=== PATIENT | female | born 1975 | race Caucasian/White ===

== ENCOUNTER 2019-11-24 23:12 | Emergency (ER) | payer MEDICAID, SELFPAY ==
[2019-11-24 23:23] VITALS: BP 126/86; PULSE 108; RESP 18; TEMP 36.8; O2SAT 96; BMI 41.7
[2019-11-25 01:26] VITALS: BP 125/88; PULSE 100; RESP 20; TEMP 36.6; O2SAT 98
[2019-11-25 01:38] LABS: Rapid Strep A Test Negative (Negative)
[2019-11-25 01:47] LABS: Influenza A by IFA Negative (Negative)
[2019-11-25 01:48] LABS: Influenza B by IFA Negative (Negative)
--- NOTE | 2019-11-25 02:08 | XR_ITS ---
WS: [id number] XR chest 1V portable [id number] REASON FOR EXAM: cough/congestion FINDINGS: The heart and mediastinal interfaces normal. Comparisons June 28, 2018. The lung verduzco are well aerated. No pneumonia, pleural effusion, pulmonary edema or mass effect. The hilum and apices normal. No osseous abnormalities. XR/XR chest 1V portable [id number] IMPRESSION: Negative chest for active pathology.
--- NOTE | 2019-11-25 02:20 | ED_ITS ---
HPI - URI/Sore Throat General: Chief Complaint: Upper Respiratory Infection Stated Complaint: COUGH/SORE THROAT/HORTON Time Seen by Provider: 11/25/19 02:19 Source: patient Mode of arrival: ambulatory Limitations: no limitations History of Present Illness: HPI Narrative: Patient is a 44-year-old female who presents to ED today with complaints of a cough, sore throat, and a headache. She states cough and sore throat have been present for 2 days. She states the headache has been present for months. Patient is being seen along with her who has very similar symptoms. She has not been running fevers. She does complain of some mild sinus pain/pressure. Denies abdominal pain, vomiting, diarrhea. MD elicited complaint: cough and sore throat Onset (ago): day(s) Consistency: constant Severity: mild Description of mucous: clear Able to tolerate fluids by mouth: Yes Exacerbating factors: nothing Relieving factors: nothing Context: sick contacts () Associated symptoms: Reports headache(s), nasal congestion and sinus pain; Deny abdominal pain, chills, chest pain, diarrhea, epistaxis, ear or mastoid pain, fever(s), nausea or vomiting Review of Systems Const: Denies: fever, chills, body aches, change in appetite, change in weight or fatigue Eyes: Denies: change in vision or blurry vision ENMT: Reports: throat pain, painful swallowing, nasal congestion and facial/sinus pain; Denies: enlarged tonsils, mouth pain, swelling of lips/tongue, oral sores/lesions, dental pain, ear pain or nose bleeds Card: Denies: chest pain, palpitations, irregular heart rhythm, edema, lightheadedness, syncope or pre-syncope Resp: Reports: productive cough and chest congestion; Denies: shortness of breath, wheezing, pain on inspiration or coughing up blood GI: Denies: abdominal pain, nausea, vomiting or diarrhea : Denies: flank pain, difficulty urinating, painful urination, urinary frequency or urinary urgency Musc: Denies: neck pain or back pain Skin/Breast: Denies: rash Neuro: Reports: headache; Denies: numbness in extremities, weakness in extremities, changes in sensation, lack of coordination, difficulty walking, dizziness, vertigo or slurred speech [facility] ED PFSH: Medical History (Updated 11/25/19 @ 02:35 by SCOTTIE Pablo) Chest pain Diabetes 1.5, managed as type 2 Essential hypertension GERD (gastroesophageal reflux disease) Intermittent asthma Surgical History (Updated 10/15/19 @ 09:28 by DOMINIC Velez) History of arthroscopy of right shoulder Hx of section Family History (Updated 10/15/19 @ 09:14 by Josey French, AUGUSTINE) Sister Diabetes Mother Diabetes Family history of premature coronary artery disease Grandmother Diabetes Social History (Updated 10/15/19 @ 09:15 by Josey French RN) Smoking and tobacco status: never smoked Alcohol intake: never Physical Exam Const: COMMON NORMALS: no apparent distress, no limitations and alert GENERAL APPEARANCE: other (malodorous) NUTRITIONAL APPEARANCE: obese HENMT: COMMON NORMALS: normocephalic, head/scalp atraumatic, hearing grossly normal bilaterally, external ears normal, EAC's normal, TM's normal bilaterally, external nose normal, nasal mucous membranes and turbinates normal, moist oral mucous membranes, oropharynx normal and gingiva normal HEAD & SCALP: normocephalic and atraumatic NOSE: external nose normal and nasal mucous membranes and turbinates normal EXTERNAL EAR: Yes external ears normal EXTERNAL AUDITORY CANAL: EAC's normal TYMPANIC MEMBRANE: TM's normal bilaterally MOUTH: other (poor dentition) THROAT: posterior oropharynx normal, tonsils normal and uvula midline Eye: COMMON NORMALS: PERRL, EOMs intact bilaterally, conjunctivae normal and no scleral icterus CONJUNCTIVA: Yes conjunctivae normal PUPIL: Yes PERRL Neck/C-Spine: COMMON NORMALS: full ROM, no lymphadenopathy and no meningeal signs Resp: COMMON NORMALS: normal respiratory effort and clear to auscultation bilaterally AUSCULTATION: clear to auscultation bilaterally Cardio: COMMON NORMALS: regular rate and regular rhythm RATE: regular rate RHYTHM: regular rhythm Neuro: SENSORIUM/ORIENTATION: Yes alert MENINGEAL SIGNS: Yes no meningeal signs Skin: COMMON NORMALS: no rashes or lesions noted GENERAL SKIN EXAM: no rashes or lesions noted Course Vital Signs: Vital signs: Vital Signs Temperature 97.9 F 11/25/19 01:26 Pulse Rate 100 11/25/19 01:26 Respiratory Rate 20 H 11/25/19 01:26 Blood Pressure 125/88 11/25/19 01:26 Pulse Oximetry 98 11/25/19 01:26 MDM - URI/Sore Throat Lab Data: Labs: Lab Results 11/25/19 11/25/19 Range/Units 01:08 01:08 Influenza Type A A g Negative (Negative) POC Influenza B Ag Negative (Negative) Group A Strep Rapi d Negative (Negative) Imaging Data^: CXR: My impression: NAD Discharge Plan Discharge Patient Disposition: Home, Self-Care Clinical Impression: Upper respiratory infection Qualifiers: URI type: unspecified viral URI Qualified Code(s): J06.9 - Acute upper respiratory infection, unspecified Condition: Stable Prescriptions: New promethazine-codeine 6.25-10 mg/5 mL syrup 5 ml PO Q6H PRN (Reason: cough) Qty: 100 RF: 0 No Action oyudipyaas-hnwriudowd-mjo-cod 99-853-39-30 mg capsule 1 cap PO Q4H PRNRF: 0 lisinopril 10 mg tablet 10 mg PO QDAY RF: 0 amlodipine [Norvasc] 2.5 mg tablet 2.5 mg PO QDAY RF: 0 nitroglycerin 0.4 mg tablet, sublingual 0.4 mg SUBLINGUAL Q5M PRNRF: 0 meclizine 25 mg tablet 25 mg PO QDAY RF: 0 metformin 1,000 mg tablet 1,000 mg PO QDAY RF: 0 pantoprazole 40 mg tablet,delayed release (DR/EC) 40 mg PO QDAY RF: 0 atorvastatin 10 mg tablet 10 mg PO QDAY RF: 0 glipizide 10 mg tablet 10 mg PO BID RF: 0 Symbicort 160-4.5 mcg/actuation HFA aerosol inhaler 2 puff INHALATION Q12H RF: 0 norethindrone (contraceptive) [Norlyda] 0.35 mg tablet 0.35 mg PO QDAY RF: 0 Alphagan P 0.1 % drops 1 drop ophthalmic (eye) Q8H RF: 0 Travatan Z 0.004 % drops 1 drop ophthalmic (eye) ONCE RF: 0 Discharge Orders: Discharge Order (Routine); Ordered 11/25/19 Ordered By: Natali Waggoner Referrals: Sophie Thakur [Family Provider] - Discharge Diet: Usual diet Discharge Activity: Increase activity as tolerated Patient Instructions: Upper Respiratory Infection (ED), Viral Syndrome (ED) Coding Level of Care Code ED Side Show Entertainer for Chg Fwd Exam Detailed
--- NOTE | 2019-11-25 02:23 | PC.NURSE ---
Agree with assessment as documented.
[2019-11-25] MEDS: promethazine-cod syrup 6.25-10mg/5 mL UDC PO (03:04)
[2019-11-25 03:05] VITALS: BP 129/91; PULSE 100; RESP 18; O2SAT 95
== END 2019-11-25 03:06 | disposition home or self-care (01) ==
PROVIDERS: Emergency Medicine; Emergency Provider Physician Assistant; Family Provider Nurse Practitioner Family
DX: J06.9 Acute upper respiratory infection, unspecified (principal); E13.9 Other specified diabetes mellitus without complications; I10 Essential (primary) hypertension; J45.20 Mild intermittent asthma, uncomplicated; E66.9 Obesity, unspecified; Z68.41 Body mass index [BMI] 40.0-44.9, adult; Z79.84 Long term (current) use of oral hypoglycemic drugs; Z79.51 Long term (current) use of inhaled steroids
CPT/HCPCS: 71045; 87081; 87804; 87880; 99282; 99283

== ENCOUNTER → 2020-07-28 11:26 | Outpatient (BNVA) | payer MEDICAID, SELFPAY | PROVIDERS: Family Provider Nurse Practitioner Family; PCP Family Medicine; Visit Provider Orthopaedic Surgery | DX: S92.351A Displaced fracture of fifth metatarsal bone, right foot, initial encounter for closed fracture (principal); X58.XXXA Exposure to other specified factors, initial encounter | CPT/HCPCS: 73630 ==

== ENCOUNTER → 2021-02-16 08:35 | Outpatient (BNVA) | payer MEDICAID, SELFPAY | PROVIDERS: Family Provider Nurse Practitioner Family; PCP Family Medicine; Visit Provider Podiatrist Foot & Ankle Surgery | DX: L60.3 Nail dystrophy (principal); E11.8 Type 2 diabetes mellitus with unspecified complications | CPT/HCPCS: 73630 ==

== ENCOUNTER 2021-02-16 10:50 | Outpatient (CLI) | payer MEDICAID, SELFPAY | END 2021-02-16 10:51 | disposition home or self-care (01) | LOC: SPT 12-09 17:01 | PROVIDERS: PCP Family Medicine; Referring Provider Podiatrist Foot & Ankle Surgery; Visit Provider Podiatrist Foot & Ankle Surgery | DX: Z46.89 Encounter for fitting and adjustment of other specified devices (principal); S92.351D Displaced fracture of fifth metatarsal bone, right foot, subsequent encounter for fracture with routine healing; X58.XXXD Exposure to other specified factors, subsequent encounter; M79.671 Pain in right foot | CPT/HCPCS: L4361 ==

== ENCOUNTER 2021-05-07 23:52 | Emergency (ER) | payer MEDICAID, SELFPAY ==
[2021-05-08 00:01] VITALS: PULSE 90; RESP 18; TEMP 36.9; O2SAT 98; BMI 40.0
--- NOTE | 2021-05-08 00:09 | ED_ITS ---
HPI - Abdominal Pain General: Chief Complaint: Abdominal Pain Stated Complaint: side pain Time Seen by Provider: 05/08/21 00:09 History of Present Illness: HPI narrative: 45-year-old female comes in today with complaints of left flank pain radiating into the abdomen. Patient also reports some nausea. Patient reports pain since this morning. Patient denies any fever or chills. Patient reports movement makes pain worse. Review of Systems General: Reports: 10 or more systems reviewed and unremarkable except in HPI and below GI: Reports: abdominal pain (Radiating from left flank) PFSH ED PFSH: Medical History Chest pain Diabetes 1.5, managed as type 2 Essential hypertension GERD (gastroesophageal reflux disease) HTN (hypertension) Intermittent asthma Surgical History History of arthroscopy of right shoulder Hx of section Family History Sister Diabetes Mother Diabetes Family history of premature coronary artery disease Grandmother Diabetes Social History Smoking and tobacco status: never smoked Alcohol intake: never Physical Exam Const: COMMON NORMALS: no acute distress and patient oriented x3 GENERAL APPEARANCE: cooperative HENMT: COMMON NORMALS: normocephalic and Normal external nose present HEAD & SCALP: normal to inspection and normocephalic NOSE: Normal external nose present MOUTH: Normal oral and palatal mucosa present Eye: GENERAL EYE: appearance normal, both eyes and all related structures Neck/C-Spine: COMMON NORMALS: full ROM Chest: COMMONS NORMALS: normal inspection of the chest Resp: COMMON NORMALS: normal respiratory effort EFFORT & INSPECTION: Yes able to speak in complete sentences Cardio: COMMON NORMALS: regular rate and regular rhythm RATE: regular rate RHYTHM: regular rhythm GI: COMMON NORMALS: Soft to palpation PALPATION: Yes Soft to palpation and Yes Tenderness to palpation present (GI) Details: LUQ : BLADDER/KIDNEY EXAM: Yes CVA tenderness on the left Back/Pelvis: COMMON NORMALS: thoracic and lumbar spine normal to inspection GENERAL BACK: Yes CVA tenderness Extremity: COMMON NORMALS: normal to inspection Neuro: COMMON NORMALS: patient oriented x3 and moves all extremities Psych: COMMON NORMALS: mental status grossly normal and cooperative Skin: COMMON NORMALS: no rashes or lesions noted GENERAL SKIN EXAM: no rashes or lesions noted Course Vital Signs: Vital signs: Vital Signs Temperature 98.4 F 05/08/21 00:01 Pulse Rate 90 05/08/21 00:01 Respiratory Rate 22 H 05/08/21 01:12 Pulse Oximetry 98 05/08/21 01:12 MDM - Abdominal Pain MDM Narrative: Medical decision making narrative: 45-year-old female comes in with left flank pain radiating to the abdomen. Patient reports movement makes pain worse, nothing makes pain better. Patient is on oral control. Exam notes left flank CVA tenderness on percussion, left anterior abdominal tenderness. Bowel sounds are present. Vital signs are normal. Differential diagnosis includes pyelonephritis, renal calculi, peptic ulcer disease, pancreatitis. Laboratory values were unremarkable. CT scan of the abdomen pelvis without contrasts indicated no acute abdominal abnormality or renal stone. Reviewed exam with patient with recommendations for treatment of musculoskeletal pain. Patient reported understanding of care plan and need for follow-up or return to the ER. Lab Data: Labs: Lab Results 05/08/21 05/08/21 05/08/21 Range/Units 00:45 00:45 00:45 WBC 8.4 (4.0-10.0) 10^3/ uL RBC 4.34 (4.1-5.3) 10^6/u L Hgb 13.0 (11.5-15.3) g/dL Hct 38.7 (37.0-47.0) % MCV 89.2 (81-99) fl MCH 30.0 (28.0-34.0) pg MCHC 33.6 (30.0-36.0) g/dL RDW 12.7 (12.1-15.1) % Plt Count 291 (130-400) 10^3/c mm MPV 10.4 (7.4-10.4) fL Neut % (Auto) 54.4 % Lymph % (Auto) 36.8 % Franklin % (Auto) 5.9 % Eos % (Auto) 2.1 % Baso % (Auto) 0.4 % Neut # (Auto) 4.59 (1.8-7.7) 10^3/u L Lymph # (Auto) 3.1 (0.8-4.8) 10^3/u L Franklin # (Auto) 0.5 (0.2-0.9) 10^3/u L Eos # (Auto) 0.2 (0.0-0.8) 10^3/u L Baso # (Auto) 0.0 (0.0-0.1) 10^3/u L Nucleated RBC % (a uto) 0 % Nucleated RBCs # 0.0 /100WBC Sodium 138 (136-145) mmol/L Potassium 3.7 (3.5-5.1) mmol/L Chloride 103 (98-107) mmol/L Carbon Dioxide 23 (22-29) mmol/L Anion Gap 15.7 (5-19) BUN 9 (6-20) mg/dL Creatinine 0.5 (0.5-0.9) mg/dL GFR Calculation 134.0 H (90-130) mL/min Glucose 211 H (65-115) mg/dL Calculated Osmolal ity 291 (285-295) mOsm/k g Calcium 9.0 (8.5-10.5) mg/dL Total Bilirubin 0.3 (0.15-1.2) mg/dL AST 21 (0-32) U/L ALT 17 (0-33) U/L Alkaline Phosphata se 114 H (35-105) IU/L Total Protein 7.9 (6.6-8.7) g/dL Albumin 4.4 (3.5-5.2) g/dL Globulin 3.5 (1.3-4.6) g/dL Lipase 40 (13-60) U/L HCG, Qual Negative (Negative) Urine Color (Yellow) Urine Appearance (CLEAR) Urine pH (5-7) Ur Specific Gravit y (1.005-1.030) Urine Protein (Negative) Urine Glucose (UA) (Normal) Urine Ketones (Negative) Urine Blood (Negative) Urine Nitrate (Negative) Urine Bilirubin (Negative) Urine Urobilinogen (Negative) mg/dL Ur Leukocyte Arelis ase (Negative) Urine RBC (0-2) /hpf Urine WBC (0-5) /hpf Ur Squamous Epith Cells (0-5) /hpf Amorphous Sediment Urine Bacteria (NONE) /hpf 05/08/21 Range/Units 00:50 WBC (4.0-10.0) 10^3/ uL RBC (4.1-5.3) 10^6/u L Hgb (11.5-15.3) g/dL Hct (37.0-47.0) % MCV (81-99) fl MCH (28.0-34.0) pg MCHC (30.0-36.0) g/dL RDW (12.1-15.1) % Plt Count (130-400) 10^3/c mm MPV (7.4-10.4) fL Neut % (Auto) % Lymph % (Auto) % Franklin % (Auto) % Eos % (Auto) % Baso % (Auto) % Neut # (Auto) (1.8-7.7) 10^3/u L Lymph # (Auto) (0.8-4.8) 10^3/u L Franklin # (Auto) (0.2-0.9) 10^3/u L Eos # (Auto) (0.0-0.8) 10^3/u L Baso # (Auto) (0.0-0.1) 10^3/u L Nucleated RBC % (a uto) % Nucleated RBCs # /100WBC Sodium (136-145) mmol/L Potassium (3.5-5.1) mmol/L Chloride (98-107) mmol/L Carbon Dioxide (22-29) mmol/L Anion Gap (5-19) BUN (6-20) mg/dL Creatinine (0.5-0.9) mg/dL GFR Calculation (90-130) mL/min Glucose (65-115) mg/dL Calculated Osmolal ity (285-295) mOsm/k g Calcium (8.5-10.5) mg/dL Total Bilirubin (0.15-1.2) mg/dL AST (0-32) U/L ALT (0-33) U/L Alkaline Phosphata se (35-105) IU/L Total Protein (6.6-8.7) g/dL Albumin (3.5-5.2) g/dL Globulin (1.3-4.6) g/dL Lipase (13-60) U/L HCG, Qual (Negative) Urine Color Yellow (Yellow) Urine Appearance Sl hazy (CLEAR) Urine pH 5 (5-7) Ur Specific Gravit y 1.025 (1.005-1.030) Urine Protein Neg (Negative) Urine Glucose (UA) 4+ H (Normal) Urine Ketones Negative (Negative) Urine Blood Neg (Negative) Urine Nitrate Negative (Negative) Urine Bilirubin Neg (Negative) Urine Urobilinogen 1 H (Negative) mg/dL Ur Leukocyte Arelis ase Negative (Negative) Urine RBC 0-4 H (0-2) /hpf Urine WBC 0-4 H (0-5) /hpf Ur Squamous Epith Cells 15-25 H (0-5) /hpf Amorphous Sediment Not Reportable Urine Bacteria 2+ H (NONE) /hpf Discharge Plan Discharge Patient Disposition: Home Clinical Impression: Acute lumbar myofascial strain Qualifiers: Encounter type: initial encounter Qualified Code(s): S39.012A - Strain of muscle, fascia and tendon of lower back, initial encounter Condition: Stable Prescriptions: New naproxen 500 mg tablet 500 mg PO BID Qty: 20 RF: 0 tizanidine 4 mg tablet 4 mg PO BID PRN (Reason: muscle spasticity) Qty: 20 RF: 0 hydrocodone-acetaminophen 5-325 mg tablet 1 tab PO Q8H PRN (Reason: pain (scale score 7-10)) Qty: 6 RF: 0 No Action qldnhlheml-rcvbwoxhkm-qmb-cod [id number] mg capsule 1 cap PO Q4H PRNRF: 0 nitroglycerin 0.4 mg tablet, sublingual 0.4 mg SUBLINGUAL Q5M PRNRF: 0 meclizine 25 mg tablet 25 mg PO QDAY RF: 0 pantoprazole 40 mg tablet,delayed release (DR/EC) 40 mg PO QDAY RF: 0 atorvastatin 10 mg tablet 10 mg PO QDAY RF: 0 glipizide 10 mg tablet 10 mg PO BID RF: 0 Symbicort 160-4.5 mcg/actuation HFA aerosol inhaler 2 puff INHALATION Q12H RF: 0 norethindrone (contraceptive) [Norlyda] 0.35 mg tablet 0.35 mg PO QDAY RF: 0 Alphagan P 0.1 % drops 1 drop ophthalmic (eye) Q8H RF: 0 Travatan Z 0.004 % drops 1 drop ophthalmic (eye) ONCE RF: 0 metformin 1,000 mg tablet 1,000 mg PO BID RF: 0 silver sulfadiazine [Silvadene] 1 % cream 1 applic TOPICAL BID Qty: 25 RF: 0 acetaminophen-codeine 300-30 mg tablet 1 tab PO Q6H PRN (Reason: pain) Qty: 20 RF: 0 (DME) blood pressure monitor [Blood Pressure Kit] Kit See Rx Instructions .ROUTE .MEDSUPPLY Qty: 1 RF: 0 (DME) Post operative shoe See Rx Instructions .Route .MEDSUPPLY Qty: 1 RF: 0 cephalexin [Keflex] 500 mg capsule 500 mg PO BID 7 Days Qty: 14 RF: 0 (DME) Short CAM Boot Rt Foot See Rx Instructions .Route .MEDSUPPLY Qty: 1 RF: 0 lisinopril 10 mg tablet 10 mg PO QDAY Qty: 90 RF: 3 amlodipine 2.5 mg tablet See Rx Instructions .ROUTE .COMPLEX Qty: 30 RF: 5 promethazine-codeine 6.25-10 mg/5 mL syrup 5 ml PO Q6H PRN (Reason: cough) Qty: 100 RF: 0 Discharge Orders: Discharge ED (Routine); Ordered 05/08/21 Ordered By: Vin Ruiz Referrals: Wong Willis [Primary Care Provider] - Discharge Diet: Usual diet Discharge Activity: Increase activity as tolerated Patient Instructions: Low Back Strain (ED), Opioid Safety Activity Restrictions/Additional Instructions: Activity as tolerated. Try to maintain normal activity as much as possible. Drink plenty of water with medications. Use naproxen routinely for the next 5 to 10 days for inflammation and pain. Use tizanidine as needed for muscle spasms. Use hydrocodone for severe pain that is not controlled with naproxen or acetaminophen. Follow-up with primary care in 3 days for recheck. Return to the ER for high fever, worsening pain, nausea vomiting with blood in vomit or stool. Coding Level of Care Code ED Internet Marketing Intern for Yulia Fweros Exam Comprehensive
--- NOTE | 2021-05-08 00:18 | CTR_ITS ---
PROCEDURE INFORMATION: Exam: CT Abdomen And Pelvis Without Contrast Exam date and time: 05/08/2021 12:18 AM Age: 45 years old Clinical indication: Abdominal pain; Patient HX: Left flank pain. TECHNIQUE: Imaging protocol: Computed tomography of the abdomen and pelvis without contrast. Radiation optimization: All CT scans at this facility use at least one of these dose optimization techniques: automated exposure control; mA and/or kV adjustment per patient size (includes targeted exams where dose is matched to clinical indication); or iterative reconstruction. COMPARISON: CR XR chest 1V portable [id number] 11/25/2019 2:25 AM RADIATION DOSE METRICS: Total DLP (mGy-cm): 1983.49 FINDINGS: Lungs: Mild fibrosis in the inferomedial right middle lobe. No consolidation at the lung bases. Liver: The liver is unremarkable in appearance. Gallbladder and bile ducts: Partially contracted gallbladder. No calcified stones. No ductal dilation. Pancreas: The pancreas is normal in appearance. No pancreatic duct dilatation. Spleen: The spleen is normal in size and appearance. Adrenal glands: The adrenal glands appear within normal limits. Kidneys and ureters: The kidneys are morphologically normal. No nephrolithiasis. No hydronephrosis. No ureteral calculi. No obstructive uropathy. Stomach and bowel: No acute gastric abnormality demonstrated. The small bowel is unremarkable as demonstrated. No acute abnormality/inflammatory change of the colon. Appendix: The appendix is normal in appearance. No evidence of appendicitis. Intraperitoneal space: No pneumoperitoneum. No significant fluid collection. Vasculature: No abdominal aortic aneurysm. Lymph nodes: No pathologically enlarged lymph nodes are demonstrated. Urinary bladder: The urinary bladder is unremarkable in appearance. Reproductive: Unremarkable as visualized. Bones/joints: Degenerative spine changes. No acute osseous abnormality. Soft tissues: The soft tissues appear unremarkable. CT/CT kidney stone [id number] IMPRESSION: 1. The kidneys are morphologically normal. No nephrolithiasis. No hydronephrosis. No ureteral calculi. No obstructive uropathy. 2. No acute abnormality demonstrated in the abdomen and pelvis. Radiation Dose CTDIVOL = (mGy): DLP = 1983.49 (mGy-cm)
[2021-05-08 01:07] LABS: Basophils % 0.4 %; Eosinophils # 0.2 10^3/uL (0.0-0.8); Eosinophils % 2.1 %; Hematocrit 38.7 % (37.0-47.0); Lymphocytes # 3.1 10^3/uL (0.8-4.8); Lymphocytes % 36.8 %; Mean Corpuscular HGB Conc 33.6 g/dL (30.0-36.0); Mean Corpuscular Volume 89.2 fl (81-99); Mean Platelet Volume 10.4 fL (7.4-10.4); Monocytes # 0.5 10^3/uL (0.2-0.9); Monocytes % 5.9 %; Neutrophils # 4.59 10^3/uL (1.8-7.7); Neutrophils % 54.4 %; Nucleated Red Blood Cells % 0 %; Platelet Count 291 10^3/cmm (130-400); Red Blood Count 4.34 10^6/uL (4.1-5.3); Red Cell Distribution Width 12.7 % (12.1-15.1); White Blood Count 8.4 10^3/uL (4.0-10.0)
[2021-05-08] MEDS: sodium chloride 0.9% 500 ML 999 ML IV (01:07)
[2021-05-08] MEDS: ketorolac 30 mg/mL INJ 15 MG IVP (01:11)
[2021-05-08 01:12] VITALS: RESP 22; O2SAT 98
[2021-05-08] MEDS: morphine 4 mg/mL SDV 1 mL 2 MG IVP (01:12)
[2021-05-08] MEDS: ondansetron 2 mg/ML SDV 2 mL 4 MG IVP (01:14)
[2021-05-08 01:17] LABS: HCG, Serum Qual Negative (Negative)
[2021-05-08 01:29] LABS: Alanine Aminotransferase 17 U/L (0-33); Albumin Level 4.4 g/dL (3.5-5.2); Alkaline Phosphatase 114 IU/L (35-105); Anion Gap 15.7 (5-19); Aspartate Amino Transferase 21 U/L (0-32); Blood Urea Nitrogen 9 mg/dL (6-20); Carbon Dioxide 23 mmol/L (22-29); Chloride 103 mmol/L (98-107); Globulin 3.5 g/dL (1.3-4.6); Glucose 211 mg/dL (65-115); Lipase 40 U/L (13-60); Osmolality Calculated 291 mOsm/kg (285-295); Potassium 3.7 mmol/L (3.5-5.1); Sodium 138 mmol/L (136-145); Total Bilirubin 0.3 mg/dL (0.15-1.2); Total Protein 7.9 g/dL (6.6-8.7)
[2021-05-08 01:59] LABS: Add Urine Microscopic? YES; Bilirubin Urine Neg (Negative); Blood Urine Neg (Negative); Glucose Urine UA 4+ (Normal); Ketones Urine Negative (Negative); Leukocyte Esterase Urine Negative (Negative); Nitrate Urine Negative (Negative); Protein Urine Neg (Negative); Specific Gravity, Urine 1.025 (1.005-1.030); Urine Appearance SL Hazy (CLEAR); Urine Color Yellow (Yellow); Urobilinogen Urine 1 mg/dL (Negative); pH Urine 5 (5-7)
[2021-05-08 02:00] LABS: Add Urine Culture? No; Bacteria Urine 2+ /hpf; RBC Urine 0-4 /hpf (0-2); Squamous Epithelial Cell Urine 15-25 /hpf (0-5); WBC Urine 0-4 /hpf (0-5)
[2021-05-08 02:34] VITALS: BP 108/75; PULSE 86; RESP 18; O2SAT 96
[2021-05-08 02:36] VITALS: BP 108/75; PULSE 83; RESP 18; O2SAT 96
== END 2021-05-08 02:38 | disposition home or self-care (01) ==
PROVIDERS: Emergency Provider Nurse Practitioner Family; PCP Family Medicine
DX: S39.012A Strain of muscle, fascia and tendon of lower back, initial encounter (principal); E13.9 Other specified diabetes mellitus without complications; I10 Essential (primary) hypertension; J45.909 Unspecified asthma, uncomplicated; Z79.84 Long term (current) use of oral hypoglycemic drugs; X58.XXXA Exposure to other specified factors, initial encounter
CPT/HCPCS: 74176; 80053; 81001; 83690; 84703; 85025; 96374; 96375; 99283; J1885; J2270; J2405; J7040

== ENCOUNTER → 2022-02-14 10:59 | Outpatient (BNVA) | payer MEDICAID, SELFPAY | PROVIDERS: PCP Family Medicine; Visit Provider Internal Medicine Cardiovascular Disease | DX: R42 Dizziness and giddiness (principal); R07.9 Chest pain, unspecified; I10 Essential (primary) hypertension; K21.9 Gastro-esophageal reflux disease without esophagitis; E13.9 Other specified diabetes mellitus without complications; Z79.84 Long term (current) use of oral hypoglycemic drugs | CPT/HCPCS: 99213; 99214 ==

== ENCOUNTER → 2022-02-17 14:24 | Outpatient (BNVA) | payer MEDICAID, SELFPAY | PROVIDERS: PCP Family Medicine; Visit Provider Podiatrist Foot & Ankle Surgery | DX: E11.21 Type 2 diabetes mellitus with diabetic nephropathy (principal); M21.40 Flat foot [pes planus] (acquired), unspecified foot; M72.2 Plantar fascial fibromatosis; M79.672 Pain in left foot | CPT/HCPCS: 73630; 99214 ==

== ENCOUNTER → 2022-04-19 13:36 | Outpatient (BNVA) | payer MEDICAID, SELFPAY | PROVIDERS: PCP Family Medicine; Visit Provider Podiatrist Foot & Ankle Surgery | DX: E11.8 Type 2 diabetes mellitus with unspecified complications (principal); M79.672 Pain in left foot; E11.21 Type 2 diabetes mellitus with diabetic nephropathy; M72.2 Plantar fascial fibromatosis; M21.40 Flat foot [pes planus] (acquired), unspecified foot; M25.371 Other instability, right ankle; Z79.84 Long term (current) use of oral hypoglycemic drugs | CPT/HCPCS: 99214 ==

== ENCOUNTER 2022-04-19 15:05 | Outpatient (CLI) | payer MEDICAID, SELFPAY | END 2022-04-19 15:06 | disposition home or self-care (01) | LOC: SPT 15:06 | PROVIDERS: PCP Family Medicine; Visit Provider Podiatrist Foot & Ankle Surgery | DX: Z46.89 Encounter for fitting and adjustment of other specified devices (principal); M72.2 Plantar fascial fibromatosis | CPT/HCPCS: 97760; 99214; L4397 ==

== ENCOUNTER → 2023-02-13 11:48 | Outpatient (BNVA) | payer MEDICAID, SELFPAY | PROVIDERS: PCP Family Medicine; Visit Provider Internal Medicine Cardiovascular Disease | DX: R07.9 Chest pain, unspecified (principal); R06.09 Other forms of dyspnea | CPT/HCPCS: 93005 ==

== ENCOUNTER 2023-03-17 09:34 | Outpatient (CLI) | payer MEDICAID, SELFPAY ==
--- NOTE | 2023-03-17 | ECG_ITS ---
[facility] Test Date: 2023-03-17 Pat Name: Lisseth Freitas Department: Room: Gender: Female Supervisor [employer]: Arielle Cheng : 1975 Requested By: Jasmin Calvin Order Number: [id number] Dede MD: Jasmin Calvin M.D. Interpretive Statements NAME OF STUDY: LEXISCAN SESTAMIBI STRESS TEST INDICATION: Dyspnea on Exertion PROCEDURE: At the baseline, the blood pressure was 113/79 mm Hg with a heart rate of 78 bpm. The electrocardiogram showed sinus rhythm, normal axis with normal ST and T's. ??? The Lexiscan was infused over a period of 20 seconds. A total of 0.4 milligrams of Lexiscan was infused. The stress phase was continued for a total of 5 minutes. Heart rate at the end of the stress phase was 105 bpm with a blood pressure of 124/79 mm Hg. The EKG at the peak infusion revealed no significant ST-T wave changes. ??? Sestamibi was injected 20 seconds after the Lexiscan infusion. ??? Blood pressure at the end of the recovery phase was 133/80 mm Hg with a heart rate of 101 beats per minute. ??? CONCLUSION: 1. No significant EKG changes with the] LexiScan infusion. 2. No LexiScan induced chest pain or cardiac arrhythmia. 3. Normal blood pressure and heart rate response. 4. Sestamibi/sestamibi perfusion scan pending; see separate report. Electronically Signed On 03-18-2023 9:57:05 CDT by Jasmin Calvin M.D. [email or web address]
[2023-03-17 10:02] VITALS: BMI 36.6
--- NOTE | 2023-03-17 10:02 | NMCV_ITS ---
NM ankita perf SPECT r/s* [id number] Lisseth Freitas Age: 47 Gender: F : 1975 Exam Date: 03/17/2023 11:00 Ordering Phys: Jasmin Calvin MD ([email or web address]) Technologist: RICHARD Reynolds Exam Location: [facility] Indications: CHEST PAIN, SHORTNESS OF BREATH STRESS TEST Please [facility] IMAGE PROTOCOL Rest/Stress 1 Lexiscan Day Radiopharmaceutical Dose (mCi) Administration Site Administered by Rest: Tc-99m 10.5 IV Francois Manuel, UTILITY FORESTER Sestamibi Stress:Tc-99m 32.5 IV Francois Manuel, UTILITY FORESTER Sestamibi Rest: 17-Mar-2023 60 Discovery 630 Stress: 17-Mar-2023 30 Discovery 630 0.4mg Lexiscan. Images obtained in supine and prone position. SPECT RESULTS Technical Quality: Excellent Raw Data Analysis: Normal Image Corrections: No attenuation or motion correction applied Summed Stress Score: 0 Summed Rest Score: 5 Summed Difference Score: 0 PERFUSION FINDINGS SPECT images demonstrate homogeneous tracer distribution throughout the myocardium. FUNCTIONAL RESULTS (calculated via Gated SPECT) Stress Image LV EF (%): 66 Stress EDV (mL):92 TID: 0.9 Stress ESV (mL):31 FUNCTIONAL FINDINGS: The left ventricle is normal in size. Transient Ischemia Dilatation of 0.9. The left ventricular ejection fraction is normal with a value of 66%. There is normal left ventricular wall thickening. Normal end diastolic and end systolic volumes. IMPRESSIONS 1. Myocardial perfusion imaging is normal. 2. Overall left ventricular systolic function is normal without regional wall motion abnormalities, LVEF=66%. 3. No EKG changes with the lexiscan infusion. 4. Scan indicates low risk for cardiac events. Jasmin Calvin MD (Electronically Signed) Final Date: 19 March 2023 03:31 S
--- NOTE | 2023-03-17 10:09 | PC.NURSE ---
Waiver Pt verbalized she was not . Declined testing. Pt explained risks of ionizing radiation harm to fetus, pt continued to decline testing and wishes to precede with stress test. Waiver signed by patient and sent to registration. Reports last menstrual period 10-12yrs ago and denies tubal ligation or hysterectomy.
[2023-03-17] MEDS: regadenoson 0.4 Mg/5 ml Syringe IVP (11:33)
[2023-03-17 11:40] VITALS: BP 133/80; PULSE 100
== END 2023-03-17 09:35 | disposition home or self-care (01) ==
LOC: CDL 09:35
PROVIDERS: PCP Family Medicine; Visit Provider Internal Medicine Cardiovascular Disease
DX: R06.00 Dyspnea, unspecified (principal)
CPT/HCPCS: 36415; 78452; 93017; 96374; A9500; J2785

== ENCOUNTER 2023-09-23 13:38 | Emergency (ER) | payer MEDICAID, SELFPAY ==
--- NOTE | 2023-09-23 13:49 | XRR_ITS ---
PROCEDURE INFORMATION: Exam: XR Chest Exam date and time: 09/23/2023 2:08 PM Age: 48 years old Clinical indication: Patient HX: Cough; Congestion; Chills TECHNIQUE: Imaging protocol: Radiologic exam of the chest. Views: 1 view. COMPARISON: CR XR chest 1V portable [id number] 11/25/2019 2:25 AM FINDINGS: Lungs: Clear. Pleural spaces: No pleural effusion identified. Heart/Mediastinum: The heart is not enlarged. The mediastinum is not enlarged. Bones/joints: No acute osseous abnormality identified. XR/XR chest 1V portable [id number] IMPRESSION: No acute findings.
[2023-09-23 13:52] VITALS: BP 130/91; PULSE 110; RESP 18; TEMP 37.2; O2SAT 97; BMI 43.9
--- NOTE | 2023-09-23 13:53 | W.ED.URI ---
HPI - URI/Sore Throat General: Chief Complaint: Upper Respiratory Infection Stated Complaint: cough Time Seen by Provider: 09/23/23 13:49 History of Present Illness: 48-year-old female comes in today for complaints of cough. Patient been ill for the last 2 days. Patient has exposure to both COVID and influenza. Patient appears nontoxic. Patient has an occasional cough. Patient endorses history of asthma and diabetes. Patient states that she has albuterol available for her through a new inhaler and nebulizer treatments. Associated symptoms: Reports fever(s); Deny chest pain, diarrhea, nausea or vomiting Review of Systems General: Reports: 10 or more systems reviewed and unremarkable except in HPI and below Const: Reports: fever(s) Card: Denies: chest pain Resp: Reports: non-productive cough; Denies: dyspnea GI: Denies: nausea, vomiting, diarrhea or constipation : Denies: flank pain Skin/Breast: Denies: rash PFSH ED PFSH: Medical History HTN (hypertension) Chest pain Intermittent asthma GERD (gastroesophageal reflux disease) Essential hypertension Diabetes 1.5, managed as type 2 Surgical History Hx of section History of arthroscopy of right shoulder Family History Sister Diabetes Mother Diabetes Family history of premature coronary artery disease Grandmother Diabetes Social History Smoking and tobacco/nicotine status: never used tobacco/nicotine Alcohol intake: never Substance/Drug Use: never Physical Exam Const: COMMON NORMALS: alert HENMT: COMMON NORMALS: normocephalic HEAD & SCALP: normocephalic MOUTH: Normal oral and palatal mucosa present Neck/C-Spine: COMMON NORMALS: full ROM Resp: COMMON NORMALS: normal respiratory effort and clear to auscultation bilaterally AUSCULTATION: clear to auscultation bilaterally Cardio: COMMON NORMALS: regular rate and regular rhythm RATE: regular rate RHYTHM: regular rhythm GI: COMMON NORMALS: non-tender Back/Pelvis: COMMON NORMALS: thoracic and lumbar spine normal to inspection Extremity: COMMON NORMALS: full ROM Neuro: SENSORIUM/ORIENTATION: Yes alert Skin: COMMON NORMALS: turgor normal GENERAL SKIN EXAM: turgor normal Course Vital Signs: Vital signs: Vital Signs Temperature 99 F 09/23/23 13:52 Pulse Rate 110 H 09/23/23 13:52 Respiratory Rate 18 09/23/23 13:52 Blood Pressure 130/91 09/23/23 13:52 Pulse Oximetry 97 09/23/23 13:52 Oxygen Delivery Me thod Room Air 09/23/23 13:52 MDM - URI/Sore Throat Medical Decision Making 48-year-old female comes in today for complaints of cough for the last 2 days. Patient appears mildly unwell but not toxic. Patient appears in no pain. Lungs have some decreased breath sounds in the bases but otherwise unremarkable. Vital signs has slightly elevated pulse of 110 but otherwise normal. Differential diagnosis includes upper respiratory infection, COVID-19, influenza, pneumonia. X-ray noted no pneumonia. Patient was given medications for cough. Patient was recommended drink plenty of water and fluids and supportive care for viral symptoms. Patient stated understanding of care plan and need for follow-up or return to the ER. Lab Data Radiology Impressions Chest X-Ray 09/23/23 13:49 IMPRESSION: No acute findings. Laboratory Results Influenza Type A Ag negative (Negative) 09/23/23 14:25 Influenza Type B Ag negative (Negative) 09/23/23 14:25 SARS-CoV-2 Ag (Rapid) negative (Negative) 09/23/23 14:25 All radiology interpretation(s) finalized by discharge Discharge Plan Discharge Patient Disposition: Home Clinical Impression: Viral infection Cough Qualifiers: Cough type: acute Qualified Code(s): R05.1 - Acute cough Condition: Stable Prescriptions: New promethazine-DM 6.25-15 mg/5 mL syrup 5 ml PO Q6H PRN (Reason: cough) Qty: 118 0RF promethazine-DM 6.25-15 mg/5 mL syrup 5 ml PO Q6H PRN (Reason: cough) Qty: 118 0RF No Action pantoprazole 40 mg tablet,delayed release (DR/EC) 40 mg PO QDAY atorvastatin 10 mg tablet 10 mg PO QDAY Symbicort 160-4.5 mcg/actuation HFA aerosol inhaler 2 puff INHALATION Q12H norethindrone (contraceptive) [Norlyda] 0.35 mg tablet 0.35 mg PO QDAY Travatan Z 0.004 % drops 1 drop ophthalmic (eye) ONCE metformin 1,000 mg tablet 1,000 mg PO BID meclizine 25 mg tablet 25 mg PO QDAY PRN aspirin [Adult Low Dose Aspirin] 81 mg tablet,delayed release (DR/EC) 81 mg PO DAILY multivitamin Tablet 1 tab PO DAILY silver sulfadiazine [Silvadene] 1 % cream 1 applic TOPICAL BID PRN Rx Instructions: apply a 1.5 mm thickness amlodipine 2.5 mg tablet See Rx Instructions .ROUTE .COMPLEX PRN (Reason: HTN) Qty: 30 5RF Dose Instruction: TAKE 1 TABLET BY MOUTH EVERY DAY Rx Instructions: TAKE 1 TABLET BY MOUTH EVERY DAY PRN; For BP> 140/90 mm Hg. Victoza 2-Pieter 0.6 mg/0.1 mL (18 mg/3 mL) pen injector 1.2 mg SUBCUT .weekly tizanidine 4 mg tablet 6 mg PO BID PRN (Reason: muscle spasticity) Nurtec ODT 75 mg tablet,disintegrating 75 mg PO DAILY PRN (Reason: migraine headache) cetirizine [All Day Allergy (cetirizine)] 10 mg tablet 10 mg PO DAILY PRN lisinopril 5 mg tablet 5 mg PO QDAY Qty: 90 3RF isosorbide mononitrate 30 mg tablet extended release 24 hr 15 mg PO DAILY Qty: 45 2RF nitroglycerin 0.4 mg tablet, sublingual 0.4 mg SUBLINGUAL Q5M PRN (Reason: chest pain) Qty: 30 6RF (DME) Night Splint See Rx Instructions .Route .MEDSUPPLY Qty: 1 0RF Rx Instructions: As directed (DME) Diabetic Shoes with 3 pairs of inserts See Rx Instructions .ROUTE .MEDSUPPLY Qty: 1 0RF Rx Instructions: As directed Shoe [place] gabapentin 100 mg capsule See Rx Instructions .ROUTE .COMPLEX Qty: 90 0RF Dose Instruction: TAKE 1 CAPSULE BY MOUTH THREE TIMES DAILY Rx Instructions: TAKE 1 CAPSULE BY MOUTH THREE TIMES DAILY naproxen 500 mg tablet 500 mg PO BID Qty: 20 0RF Discharge Orders: Discharge ED (Routine); Ordered 09/23/23 Ordered By: Vin Ruiz Referrals: Wong Willis [Primary Care Provider] - Discharge Diet: Usual diet Discharge Activity: Increase activity as tolerated Patient Instructions: Cold Symptoms (ED) Activity Restrictions/Additional Instructions: Drink plenty of water and fluids. Continue with albuterol every 4 hours as needed for persistent coughing or wheezing. Continue with routine medications as directed. Follow-up with primary care for further instructions. Return to ED for worsening symptoms such as severe chest pain or severe shortness of breath or new concerns. Coding Level of Care Code ED Top Precipitator Operator Helper for Yulia Damon
[2023-09-23 14:59] LABS: SARS Covid-2 Antigen negative (Negative)
[2023-09-23 15:00] LABS: Influenza A by IFA negative (Negative); Influenza B by IFA negative (Negative)
[2023-09-23 15:17] VITALS: BP 151/85; PULSE 116; O2SAT 94
== END 2023-09-23 15:18 | disposition home or self-care (01) ==
PROVIDERS: Emergency Provider Nurse Practitioner Family; PCP Family Medicine
DX: B34.9 Viral infection, unspecified (principal); Z79.82 Long term (current) use of aspirin; Z79.84 Long term (current) use of oral hypoglycemic drugs; Z11.52 Encounter for screening for COVID-19; I10 Essential (primary) hypertension; E13.9 Other specified diabetes mellitus without complications
CPT/HCPCS: 71045; 87426; 87804; 99284

== ENCOUNTER 2024-02-05 13:07 | Emergency (ER) | payer MEDICAID, SELFPAY ==
[2024-02-05 13:08] VITALS: BP 143/85; PULSE 95; TEMP 36.9; O2SAT 98; BMI 36.7
--- NOTE | 2024-02-05 13:12 | XRR_ITS ---
PROCEDURE INFORMATION: Exam: XR Chest Exam date and time: 02/05/2024 1:22 PM Age: 48 years old Clinical indication: Pain; Angina pectoris; Additional info: Cp TECHNIQUE: Imaging protocol: Radiologic exam of the chest. Views: 1 view. COMPARISON: CR XR chest 1V portable [id number] 09/23/2023 2:08 PM FINDINGS: Lungs: No significant active pathology. Pleural spaces: No pleural effusion or pneumothorax. Heart/Mediastinum: Unremarkable. Bones/joints: No significant pathology. XR/XR chest 1V portable [id number] IMPRESSION: No acute pathology or significant interval change.
--- NOTE | 2024-02-05 13:12 | ECG_ITS ---
[facility] Test Date: 2024-02-05 Pat Name: Lisseth Freitas Department: Room: Gender: Female Associate Attorney: : 1975 Requested By: Erin Mccormick Order Number: [id number] Dede MD: Lydia Hurtado M.D. Measurements Intervals [place] Rate: 77 P: -10 [place]: 141 QRS: -3 QRSD: 98 T: 67 QT: 390 QTc: 444 Interpretive Statements SINUS RHYTHM Compared to ECG 02/13/2023 11:56:39 No significant changes Electronically Signed On 02-05-2024 17:57:34 CDT by Lydia Hurtado M.D. [email or web address].[email or web address] [email or web address] osteopathic hospitalEasy [email or web address]/store/[id number] f
--- NOTE | 2024-02-05 13:17 | ED_ITS ---
HPI - Chest Pain 2 General: Chief Complaint: Chest Pain Stated Complaint: CP Time Seen by Provider: 02/05/24 13:11 Source: patient and EMS Mode of arrival: EMS Limitations: no limitations History of Present Illness: 48-year-old female states she has had so me chest pain that started couple hours ago. States that sharp pain left side of her chest states it is since resolved. States she had chest pain off and on for years. She denies any shortness of breath denies any nausea denies any diaphoresis denies cough or fever Associated symptoms: Deny abdominal pain, dyspnea, fever(s), nausea or vomiting Review of Systems 2 Const: Denies: fever(s), chills, body aches or change in appetite ENMT: Denies: throat pain or dental pain Card: Reports: chest pain Resp: Denies: dyspnea GI: Denies: abdominal pain, nausea, vomiting or diarrhea Musc: Denies: neck pain or back pain Skin/Breast: Denies: rash Neuro: Denies: headache(s) PFSH ED 2 PFSH: Medical History HTN (hypertension) Chest pain Intermittent asthma GERD (gastroesophageal reflux disease) Essential hypertension Diabetes 1.5, managed as type 2 Surgical History Hx of section History of arthroscopy of right shoulder Family History Sister Diabetes Mother Diabetes Family history of premature coronary artery disease Grandmother Diabetes Social History Smoking and tobacco/nicotine status: never used tobacco/nicotine Alcohol intake: never Substance/Drug Use: never Physical Exam 2 Const: COMMON NORMALS: no acute distress, patient oriented x3 and healthy appearing HENMT: COMMON NORMALS: normocephalic and atraumatic HEAD & SCALP: n ormocephalic and atraumatic Eye: COMMON NORMALS: conjunctivae normal CONJUNCTIVA: Yes conjunctivae normal Neck/C-Spine: COMMON NORMALS: full ROM and supple Chest: COMMONS NORMALS: normal inspection of the chest and normal palpation of entire chest wall Resp: COMMON NORMALS: normal respiratory effort, No retractions, No use of accessory muscles and clear to auscultation bilaterally AUSCULTATION: clear to auscultation bilaterally Cardio: COMMON NORMALS: regular rate, regular rhythm and No murmurs present (Cardio) RATE: regular rate RHYTHM: regular rhythm GI: COMMON NORMALS: Normal to inspection, nondistended, normoactive bowel sounds present, Soft to palpation, non-tender and no masses PALPATION: Yes Soft to palpation Extremity: COMMON NORMALS: normal to inspection and full ROM Neuro: COMMON NORMALS: patient oriented x3, moves all extremities and no focal motor deficits Psych: COMMON NORMALS: mental status grossly normal, Normal thought process present and cooperative THOUGHT PROCESS: Normal thought process present Skin: COMMON NORMALS: no rashes or lesions noted and no wounds GENERAL SKIN EXAM: no rashes or lesions noted Course 2 Vital Signs: Vital signs: Vital Signs Temperature 98.4 F 02/05/24 13:08 Pulse Rate 54 L 02/05/24 13:26 Blood Pressure 143/85 02/05/24 13:26 Pulse Oximetry 98 02/05/24 13:26 Oxygen Delivery Me thod Room Air 02/05/24 13:08 MDM - Chest Pain Medical Decision Making Patient presents for chest pains atypical in nature her troponins EKGs are normal she is stable for discharge she has no signs of PE or dissection she is follow-up with PCP return if worsening. Medical Records I reviewed the patient's medical records. Lab Data I reviewed the patient's lab results. 02/05/24 14:04 02/05/24 14:04 Radiology Impressions Chest X-Ray 02/05/24 13:12 IMPRESSION: No acute pathology or significant interval change. Laboratory Results WBC 7.18 10^3/uL (3.29-11.43) 02/05/24 14:04 RBC 4.23 10^6/uL (3.85-5.65) 02/05/24 14:04 Hgb 11.80 g/dL (11.27-16.99) 02/05/24 14:04 Hct 36.3 % (36-47) 02/05/24 14:04 MCV 85.8 fl (85-98) 02/05/24 14:04 MCH 27.9 pg (27-33) 02/05/24 14:04 MCHC 32.5 g/dL (30-55) 02/05/24 14:04 RDW 13.9 % (12.1-15.1) 02/05/24 14:04 Plt Count 269 10^3/cmm (157-399) 02/05/24 14:04 MPV 9.9 fL (7.4-10.4) 02/05/24 14:04 Neut % (Auto) 63.5 % 02/05/24 14:04 Lymph % (Auto) 26.9 % 02/05/24 14:04 [place] % (Auto) 5.8 % 02/05/24 14:04 Eos % (Auto) 2.6 % 02/05/24 14:04 Baso % (Auto) 0.6 % 02/05/24 14:04 Neut # (Auto) 4.56 10^3/uL (1.8-7.7) 02/05/24 14:04 Lymph # (Auto) 1.9 10^3/uL (0.8-4.8) 02/05/24 14:04 [place] # (Auto) 0.4 10^3/uL (0.2-0.9) 02/05/24 14:04 Eos # (Auto) 0.2 10^3/uL (0.0-0.8) 02/05/24 14:04 Baso # (Auto) 0.0 10^3/uL (0.0-0.1) 02/05/24 14:04 Nucleated RBC % (auto) 0 % 02/05/24 14:04 Nucleated RBCs # 0.0 /100WBC 02/05/24 14:04 PT 14.10 SECONDS (12.1-14.9) 02/05/24 14:04 INR 1.05 (0.8-1.2) 02/05/24 14:04 Sodium 136 mmol/L (136-145) 02/05/24 14:04 Potassium 4.1 mmol/L (3.5-5.1) 02/05/24 14:04 Chloride 106 mmol/L (98-107) 02/05/24 14:04 Carbon Dioxide 21 mmol/L (22-29) L 02/05/24 14:04 Anion Gap 13.1 (5-19) 02/05/24 14:04 BUN 14 mg/dL (6-20) 02/05/24 14:04 Creatinine 0.7 mg/dL (0.5-0.9) 02/05/24 14:04 GFR Calculation 89.7 mL/min (90-130) L 02/05/24 14:04 Glucose 224 mg/dL (65-115) H 02/05/24 14:04 POC Glucose 231 mg/dL (70-110) H 02/05/24 13:28 Calculated Osmolality 289 mOsm/kg (285-295) 02/05/24 14:04 Calcium 9.0 mg/dL (8.5-10.5) 02/05/24 14:04 Total Bilirubin 0.3 mg/dL (0.15-1.2) 02/05/24 14:04 AST 14 U/L (0-32) 02/05/24 14:04 ALT 13 U/L (0-33) 02/05/24 14:04 Alkaline Phosphatase 103 U/L (35-105) 02/05/24 14:04 Troponin T Baseline 7 ng/L (0-10) 02/05/24 14:04 Troponin T 120 Minute 6.53 ng/L (0-10) 02/05/24 16:19 Delta Troponin T -0.47 ABS# (0-10) L 02/05/24 16:19 Total Protein 7.7 g/dL (6.6-8.7) 02/05/24 14:04 Albumin 4.6 g/dL (3.5-5.2) 02/05/24 14:04 Globulin 3.1 g/dL (1.3-4.6) 02/05/24 14:04 Lipase 35 U/L (13-60) 02/05/24 14:04 All radiology interpretation(s) finalized by discharge EKG Data EKG 1: I personally reviewed and interpreted this EKG as follows: EKG interpretation date: 02/05/24 EKG interpretation time: 13:12 Interpretation: nsr hr [address] or t wave abnormalities qrs 98 qtc 422 EKG 2: I personally reviewed and interpreted this EKG as follows: EKG interpretation date: 02/05/24 EKG interpretation time: 15:10 Interpretation: nsr hr [address] or t wave abnormalities qrs 97 qtc 417 Discharge Plan Discharge Patient Disposition: Home Clinical Impression: Atypical chest pain Condition: Stable Prescriptions: No Action pantoprazole 40 mg tablet,delayed release (DR/EC) 40 mg PO QDAY atorvastatin 10 mg tablet 10 mg PO QDAY Symbicort 160-4.5 mcg/actuation HFA aerosol inhaler 2 puff INHALATION Q12H norethindrone (contraceptive) [Norlyda] 0.35 mg tablet 0.35 mg PO QDAY Travatan Z 0.004 % drops 1 drop ophthalmic (eye) ONCE metformin 1,000 mg tablet 1,000 mg PO BID meclizine 25 mg tablet 25 mg PO QDAY PRN aspirin [Adult Low Dose Aspirin] 81 mg tablet,delayed release (DR/EC) 81 mg PO DAILY multivitamin Tablet 1 tab PO DAILY silver sulfadiazine [Silvadene] 1 % cream 1 applic TOPICAL BID PRN Rx Instructions: apply a 1.5 mm thickness amlodipine 2.5 mg tablet See Rx Instructions .ROUTE .COMPLEX PRN (Reason: HTN) Qty: 30 5RF Dose Instruction: TAKE 1 TABLET BY MOUTH EVERY DAY Rx Instructions: TAKE 1 TABLET BY MOUTH EVERY DAY PRN; For BP> 140/90 mm Hg. Victoza 2-Pieter 0.6 mg/0.1 mL (18 mg/3 mL) pen injector 1.2 mg SUBCUT .weekly tizanidine 4 mg tablet 6 mg PO BID PRN (Reason: muscle spasticity) Nurtec ODT 75 mg tablet,disintegrating 75 mg PO DAILY PRN (Reason: migraine headache) cetirizine [All Day Allergy (cetirizine)] 10 mg tablet 10 mg PO DAILY PRN lisinopril 5 mg tablet 5 mg PO QDAY Qty: 90 3RF isosorbide mononitrate 30 mg tablet extended release 24 hr 15 mg PO DAILY Qty: 45 2RF nitroglycerin 0.4 mg tablet, sublingual 0.4 mg SUBLINGUAL Q5M PRN (Reason: chest pain) Qty: 30 6RF (DME) Night Splint See Rx Instructions .Route .MEDSUPPLY Qty: 1 0RF Rx Instructions: As directed (DME) Diabetic Shoes with 3 pairs of inserts See Rx Instructions .ROUTE .MEDSUPPLY Qty: 1 0RF Rx Instructions: As directed Shoe [place] gabapentin 100 mg capsule See Rx Instructions .ROUTE .COMPLEX Qty: 90 0RF Dose Instruction: TAKE 1 CAPSULE BY MOUTH THREE TIMES DAILY Rx Instructions: TAKE 1 CAPSULE BY MOUTH THREE TIMES DAILY naproxen 500 mg tablet 500 mg PO BID Qty: 20 0RF promethazine-DM 6.25-15 mg/5 mL syrup 5 ml PO Q6H PRN (Reason: cough) Qty: 118 0RF promethazine-DM 6.25-15 mg/5 mL syrup 5 ml PO Q6H PRN (Reason: cough) Qty: 118 0RF Discharge Orders: Discharge ED (Routine); Ordered 02/05/24 Ordered By: Erin Mccormick Referrals: Wong Willis [Primary Care Provider] - Discharge Diet: Advance as tolerated Discharge Activity: Resume usual activity Patient Instructions: Chest Pain (ED) Coding Level of Care Code ED Commissioned Fire Officer for Yulia Damon
[2024-02-05 13:26] VITALS: BP 143/85; PULSE 54; O2SAT 98
[2024-02-05 13:36] LABS: Glucose Point of Care 231 mg/dL (70-110)
[2024-02-05 14:10] LABS: Basophils % 0.6 %; Eosinophils # 0.2 10^3/uL (0.0-0.8); Eosinophils % 2.6 %; Hematocrit 36.3 % (36-47); Lymphocytes # 1.9 10^3/uL (0.8-4.8); Lymphocytes % 26.9 %; Mean Corpuscular HGB Conc 32.5 g/dL (30-55); Mean Corpuscular Hemoglobin 27.9 pg (27-33); Mean Corpuscular Volume 85.8 fl (85-98); Mean Platelet Volume 9.9 fL (7.4-10.4); Monocytes # 0.4 10^3/uL (0.2-0.9); Monocytes % 5.8 %; Neutrophils # 4.56 10^3/uL (1.8-7.7); Neutrophils % 63.5 %; Nucleated Red Blood Cells % 0 %; Platelet Count 269 10^3/cmm (157-399); Red Blood Count 4.23 10^6/uL (3.85-5.65); Red Cell Distribution Width 13.9 % (12.1-15.1); White Blood Count 7.18 10^3/uL (3.29-11.43)
[2024-02-05 14:44] LABS: Alanine Aminotransferase 13 U/L (0-33); Albumin Level 4.6 g/dL (3.5-5.2); Alkaline Phosphatase 103 U/L (35-105); Anion Gap 13.1 (5-19); Aspartate Amino Transferase 14 U/L (0-32); Blood Urea Nitrogen 14 mg/dL (6-20); Carbon Dioxide 21 mmol/L (22-29); Chloride 106 mmol/L (98-107); Creatinine Clr Calc Pharmacy 104.3473; Globulin 3.1 g/dL (1.3-4.6); Glomerular Filtration Rate 89.7 mL/min (90-130); Glucose 224 mg/dL (65-115); Lipase 35 U/L (13-60); Osmolality Calculated 289 mOsm/kg (285-295); Potassium 4.1 mmol/L (3.5-5.1); Sodium 136 mmol/L (136-145); Total Bilirubin 0.3 mg/dL (0.15-1.2); Total Protein 7.7 g/dL (6.6-8.7)
[2024-02-05 14:48] LABS: Troponin(5th) Baseline 7 ng/L (0-10)
[2024-02-05 14:50] LABS: INR 1.05 (0.8-1.2)
--- NOTE | 2024-02-05 15:12 | ECG_ITS ---
[facility] Test Date: 2024-02-05 Pat Name: Lisseth Freitas Department: Room: Gender: Female Urban Renewal Manager: : 1975 Requested By: Erin Mccormick Order Number: [id number] Dede MD: Lydia Hurtado M.D. Measurements Intervals [place] Rate: 70 P: -6 [place]: 136 QRS: -10 QRSD: 97 T: 58 QT: 396 QTc: 428 Interpretive Statements SINUS RHYTHM Compared to ECG 02/05/2024 13:12:04 No significant changes Electronically Signed On 02-05-2024 18:10:23 CDT by Lydia Hurtado M.D. [id number]
[2024-02-05 16:58] LABS: Troponin 5 2HR 6.53 ng/L (0-10)
[2024-02-05 16:59] LABS: Troponin 5 2HR Delta -0.47 ABS# (0-10)
[2024-02-05 17:14] VITALS: BP 134/90; PULSE 77; O2SAT 99
[2024-02-05 17:22] VITALS: BP 134/90; PULSE 77; TEMP 36.9; O2SAT 99
== END 2024-02-05 17:23 | disposition home or self-care (01) ==
PROVIDERS: Emergency Provider Emergency Medicine; PCP Family Medicine
DX: R07.89 Other chest pain (principal); Z79.82 Long term (current) use of aspirin; Z79.84 Long term (current) use of oral hypoglycemic drugs; I10 Essential (primary) hypertension; E11.9 Type 2 diabetes mellitus without complications
CPT/HCPCS: 36415; 36416; 71045; 80053; 82962; 83690; 84484; 85025; 85610; 93005; 99285

== ENCOUNTER 2024-02-28 12:26 | Outpatient (CLI) | payer MEDICAID, SELFPAY ==
--- NOTE | 2024-02-28 | ECG_ITS ---
[facility] Test Date: 2024-02-28 Pat Name: Lisseth Freitas Department: Room: Gender: Female Third Rigger: : 1975 Requested By: Ronda Vang Order Number: [id number] Dede MD: Lydia Hurtado M.D. Interpretive Statements NAME OF STUDY: TREADMILL STRESS TEST INDICATION: Chest Pain PROCEDURE: At the baseline, the patient's blood pressure was 123/91 with a heart rate of 84. The baseline electrocardiogram showed normal sinus rhythm with normal ST-Ts. Normal MI and QRS duration.. The patient exercised for 6 minutes and 37 on a standard Cedric protocol. Patient attained a maximum heart rate of 150 beats per minute(86% of the maximum predicted heart rate) with a blood pressure at the peak exercise of 136/91 mm Hg. The EKG at the peak exercise revealed no significant changes.. Patient did not have any chest pain or any significant cardiac arrhythmias with the exercise During the recovery phase, there were no new changes. Blood pressure at the end of the recovery phase was 138/83 mm Hg with a heart rate of 100 per minute. CONCLUSION: 1. Normal EKG response to treadmill exercise 2. No exercise-induced chest pain or cardiac arrhythmia 3. Slightly impaired exercise tolerance, attained a maximum of 8.1 METs Electronically Signed On 03-03-2024 21:05:09 CDT by Lydia Hurtado M.D. [id number]
[2024-02-28 12:56] VITALS: BMI 37.5
[2024-02-28 13:27] VITALS: BP 126/74; PULSE 94
== END 2024-02-28 12:27 | disposition home or self-care (01) ==
LOC: CDL 12:27
PROVIDERS: PCP Family Medicine; Visit Provider Nurse Practitioner Family
DX: R07.9 Chest pain, unspecified (principal); I10 Essential (primary) hypertension; E11.42 Type 2 diabetes mellitus with diabetic polyneuropathy; E66.01 Morbid (severe) obesity due to excess calories
CPT/HCPCS: 93017